=== PATIENT | female | born 1985 | race Caucasian/White ===

== ENCOUNTER 2017-10-04 11:32 | Emergency (ER) | payer MEDICAID ==
[~2017-10-04] VITALS: Ht 157.5 cm; Wt 68.2 kg
[~2017-10-04 11:32] MED LIST: AMITIZA24 MCG; BCP TD; BENADRYL50 MG PO; CLINDAMYCIN150 MG PO; DEXILANT60 MG; EFFEXOR-XR150 MG; NEURONTIN300 MG/CAP; PREDNISONE20 MG PO; SENOKOT8.6 MG; SINGULAIR4 MG PO; SYNTHROID 0.0.025 MG; TOPAMAX50 MG; VALTREX 50500 MG/TAB; VOLTAREN 50MG T50 MG; WELLBUTRIN SR150 M1; ZANTAC150 MG PO; ZOVIRAX200 MG PO; ZYRTEC10 M1 PO
[2017-10-04 11:35] VITALS: BP 133/63; TEMP 98
[2017-10-04 14:04] VITALS: PULSE 93
== END 2017-10-04 14:05 | disposition home or self-care (01) ==
LOC: COL.ER 11:32
DX: G89.29 Other chronic pain (principal); M54.2 Cervicalgia; F32.9 Major depressive disorder, single episode, unspecified; F60.3 Borderline personality disorder; K21.9 Gastro-esophageal reflux disease without esophagitis; Z90.89 Acquired absence of other organs
CPT/HCPCS: J1170

== ENCOUNTER → 2021-04-23 | Outpatient (CLI) | payer MEDICAID | LOC: COL.RAD 07:51 | DX: K21.9 Gastro-esophageal reflux disease without esophagitis (principal); K58.1 Irritable bowel syndrome with constipation; K90.0 Celiac disease | CPT/HCPCS: A9541 ==